=== PATIENT | female | born 1995 | race Caucasian/White ===

== ENCOUNTER 2024-06-12 21:00 | Emergency (ER) | payer MEDICAID, SELFPAY ==
[2024-06-12 21:01] VITALS: BMI 18.8
--- NOTE | 2024-06-12 21:37 | EDNOTE_ITS ---
ED Dental RME/HPI General Chief complaint: Skin/Abscess/Foreign Body Stated complaint: SWELLING TO LEFT SIDE CHIN Time Seen by Provider: 06/12/24 22:40 Source: patient Arrival date/time: 06/12/24 21:00 29-year-old female with no known medical history presents to the emergency room with a chief complaint of swelling and tenderness to the left bottom gums x 1 day. Mode of arrival: ambulatory Limitations: no limitations Related Data Home Medications ?Medication ?Instructions ?Recorded ?Confirmed Vitamin * 1 tab PO QDAY #0 tabs 09/08/14 Previous Rx's ?Medication ?Instructions ?Recorded naproxen 500 mg tablet 500 mg PO BID PRN pain #30 tabs 12/31/23 clindamycin HCl 300 mg capsule 300 mg PO TID 7 days #21 caps 06/12/24 Allergies Allergy/AdvReac Type Severity Reaction Status Date / Time artichoke Allergy Severe HIVES Unverified 09/08/14 11:54 Penicillins Allergy Mild Unverified 09/08/14 11:54 Sulfa (Sulfonamide Allergy Mild Unverified 09/08/14 11:54 Antibiotics) Review of Systems Review of Systems Systems Reviewed: All systems reviewed, normal except as documented Constitutional Constitutional: Reports system reviewed and no additional complaints, except as documented, Denies fatigue, Denies fever(s), Denies headache(s) and Denies weakness Eyes Eyes: Reports system reviewed and no additional complaints, except as documented, Denies blurry vision and Denies change in vision ENT Ears, Nose, Mouth, and Throat: Reports system reviewed and no additional complaints, except as documented, Reports dental pain, Denies otalgia, Denies headache(s), Reports mouth pain, Denies nasal congestion, Denies throat swelling and Denies vertigo Cardiovascular Cardiovascular: Reports system reviewed and no additional complaints, except as documented, Denies chest pain, Denies dyspnea and Denies dyspnea on exertion Respiratory Respiratory: Reports system reviewed and no additional complaints, except as documented, Denies chest congestion, Denies cough, Denies dyspnea, Denies dyspnea on exertion and Denies wheezing Gastrointestinal Gastrointestinal: Reports system reviewed and no additional complaints, except as documented, Denies abdominal pain, Denies cramping, Denies nausea and Denies vomiting Genitourinary Genitourinary: Reports system reviewed and no additional complaints, except as documented Musculoskeletal Musculoskeletal: Reports system reviewed and no additional complaints, except as documented and Denies back pain Integumentary/Breasts Skin/Breast: Reports system reviewed and no additional complaints, except as documented and Denies wounds Neurologic Neurologic: Reports system reviewed and no additional complaints, except as documented, Denies confusion, Denies headache(s), Denies lack of coordination, Denies vertigo and Denies weakness Psychiatric Psychiatric: Reports system reviewed and no additional complaints, except as documented, Denies anxiety, Denies confusion, Denies depression, Denies paranoia, Denies suicidal ideation and Denies tactile hallucinations Endocrine Endocrine: Reports system reviewed and no additional complaints, except as documented and Denies fatigue Hematologic/Lymphatic Hematologic/Lymphatic: Reports system reviewed and no additional complaints, except as documented and Denies lymphadenopathy Allergic/Immunologic Allergic/Immunologic: Reports system reviewed and no additional complaints, except as documented, Denies throat swelling, Denies urticaria and Denies wheezing ED Exam General Limitations: Present no limitations General appearance: Present alert and in no apparent distress Head Head exam: Present atraumatic Eye Eye exam: Present normal appearance, PERRL and EOMI ENT ENT exam: Present normal exam, normal oropharynx and mucous membranes moist Expanded ENT Exam Teeth exam: Present dental tenderness # and gingival swelling Teeth numbered: 2 1. Dental Tenderness Neck Neck exam: Present normal inspection, full ROM and trachea midline Chest Chest inspection: Present normal inspection and symmetric chest wall rise Respiratory Respiratory exam: Present normal lung sounds bilaterally Cardiovascular Cardiovascular exam: Present regular rate, normal rhythm and normal heart sounds Abdominal Exam Abdominal exam: Present soft and normal bowel sounds Extremities Exam Extremities exam: Present normal inspection and full ROM Back Exam Back exam: Present normal inspection and full ROM Neurological Exam Neurological exam: Present alert, oriented X3 and CN II-XII intact Psychiatric Psychiatric exam: Present normal affect and normal mood Skin Skin exam: Present warm, dry, intact and normal color Course Quality Measures none Orders Category Date Time Status Clindamycin Vial [Cleocin vial] Med 06/12/24 21:37 Discontinued 600 mg IM X1 ONE Ketorolac Inj [Toradol Inj] Med 06/12/24 21:37 Discontinued 30 mg IM X1 ONE Vital Signs Vital signs: Vital Signs Temperature 98.3 F 06/12/24 21:38 Pulse Rate 106 H 06/12/24 21:38 Respiratory Rate 20 06/12/24 21:38 Blood Pressure 119/73 06/12/24 21:38 Pulse Oximetry (%) 98 06/12/24 21:38 Oxygen Delivery Method Room Air 06/12/24 21:38 Dental / Oral MDM Narrative MDM Narrative:: 29-year-old female with no known medical history presents to the emergency room with a chief complaint of swelling and tenderness to the left bottom gums x 1 day. Clinically the patient appears nontoxic and in no apparent distress. Physical examination shows tenderness and pain to tooth #20 and 21 with palpation. Pain medication and a shot of antibiotics were given to the patient patient was educated to follow-up with her dentist and return to the emergency room for any evidence of worsening signs or symptoms Patient data External records reviewed:: [facility] previous records Clinical information provided by:: patient Social determinants that could affect healthcare access:: none Patient has the following chronic illnesses:: No chronic illness How is presenting disease/condition affected by chronic disease/condition?: no chronic disease Evaluation data The following diagnostics were reviewed and interpreted by me:: lab results and radiology exam(s) Lab and/or radiology exams considered but not ordered:: Labs and radiology exams considered and ordered Interpretation Summary: N/A Medications / Prescriptions Medications or Prescriptions considered but not ordered:: Rx given Medication administrations:: Medication Administration History Discontinued Medications Clindamycin Phosphate (Clindamycin Phos Inj 150 Mg/Ml Vial 6 Ml) 600 mg IM X1 ONE Stop: 06/12/24 21:38 Last Admin: 06/12/24 21:48 Dose: 600 mg Documented By: OA Ketorolac Tromethamine (Ketorolac Inj 60 Mg/2 Ml Vial) 30 mg IM X1 ONE Stop: 06/12/24 21:38 Last Admin: 06/12/24 21:48 Dose: 30 mg Documented By: OA Rx given Consultations Consultation(s) initiated? (list below): No Diagnosis Dental Differential Diagnosis: dental caries, toothache, dental abscess and fracture of tooth Most likely diagnosis given after review of the tests above:: Tooth ache Admission Indicated Admission indicated?: not indicated Admission Request Was there a request for admission?: No Disposition Plan Disposition Plan: Discharge Discharge Attestation Discharge Attestation: The patient and all family members were given an opportunity to ask questions and understood the discharge instructions. Discharge instructions specifically effects, indications for sooner follow up or return to the emergency department, and the expected course of current diagnosis. Patient condition: Stable Discharge Plan Plan Patient Disposition: HOME (Self Care) Disposition Comment: Stable Prescriptions/Referrals Prescriptions/Med Rec: New clindamycin HCl 300 mg capsule 300 mg PO TID 7 Days Qty: 21 0RF No Action Vitamin * 1 EACH tablet 1 tab PO QDAY Qty: 0 naproxen 500 mg tablet 500 mg PO BID PRN (Reason: pain) Qty: 30 0RF Referrals: Carloz Logan MD [Primary Care Provider] - In 1 week Problem List Clinical Impression: Pain, dental Patient/Caregiver Discharge Instructions Education Materials: ED Dental Pain Additional Instructions: Please follow-up with your dentist in the next 24 to 48 hours. Antibiotics are sent to your pharmacy please pick them up and take them as indicated. For any evidence of worsening signs or symptoms please return to the emergency room immediately Print Language: [place] Stand Alone Forms: Kathy Award Info., Patient Portal Info Letter ROC/MARIO Supervising Physician ROC/MARIO Supervising Physician: Dr Tinsley
[2024-06-12 21:38] VITALS: BP 119/73; PULSE 106; RESP 20; TEMP 36.8; O2SAT 98
[2024-06-12] MEDS: KETOROLAC INJ 60 MG/2 ML VIAL 30 MG IM (21:48)
[2024-06-12] MEDS: CLINDAMYCIN PHOS INJ 150 MG/ML VIAL 6 ML 600 MG IM (21:48)
== END 2024-06-13 01:26 | disposition home or self-care (01) ==
PROVIDERS: Emergency Provider Emergency Medicine; PCP Family Medicine
DX: K08.89 Other specified disorders of teeth and supporting structures (principal)
CPT/HCPCS: 96372; 99283; J0736; J1885

== ENCOUNTER 2024-07-12 07:35 | Emergency (ER) | payer MEDICAID, SELFPAY ==
[2024-07-12 07:36] VITALS: BMI 19.8
[2024-07-12 07:45] VITALS: BP 124/83; PULSE 115; RESP 19; TEMP 37; O2SAT 100
--- NOTE | 2024-07-12 07:49 | XR_ITS ---
Examination: Ribs, right, with PA chest, 5 views Technique: Chest PA, RIBS AP, RPO, LPO, AP coned lower ribs 5 views Exam date and time: July 12, 2024 0820 hrs. Indications: Patient fell 6 days ago with injury to the right chest, right chest pain right rib pain Findings: Normal heart size No pneumothorax No acute rib fractures Impression: No pneumothorax pulmonary contusion or hemothorax No acute rib fractures
--- NOTE | 2024-07-12 07:50 | EDNOTE_ITS ---
ED General RME/HPI General Chief complaint: General Adult/Misc Complain Stated complaint: R RIB PAIN X6 DAYS Time Seen by Provider: 07/12/24 07:42 Source: patient Arrival date/time: 07/12/24 07:35 29-year-old female with no known medical history presents to the emergency room with a chief complaint of right sided rib pain x 6 days. Patient states she had an injury 6 days ago and the injury has progressively gotten worse. Mode of arrival: ambulatory Limitations: no limitations Related Data Home Medications ?Medication ?Instructions ?Recorded ?Confirmed Vitamin * 1 tab PO QDAY #0 tabs Previous Rx's ?Medication ?Instructions ?Recorded naproxen 500 mg tablet 500 mg PO BID PRN pain #30 t abs 12/31/23 ibuprofen 600 mg tablet 600 mg PO Q8H PRN fever or p ain 07/12/24 #20 tabs Allergies Allergy/AdvReac Type Severity Reaction Status Date / Time artichoke Allergy Severe HIVES Verified 07/12/24 07:41 Penicillins Allergy Mild Rash Verified 07/12/24 07:41 Sulfa (Sulfonamide Allergy Mild Rash Verified 07/12/24 07:41 Antibiotics) Review of Systems Review of Systems Systems Reviewed: All systems reviewed, normal except as documented Constitutional Constitutional: Reports system reviewed and no additional complaints, except as documented, Denies fatigue, Denies fever(s), Denies headache(s) and Denies weakness Eyes Eyes: Reports system reviewed and no additional complaints, except as documented, Denies blurry vision and Denies change in vision ENT Ears, Nose, Mouth, and Throat: Reports system reviewed and no additional complaints, except as documented, Denies otalgia, Denies headache(s), Denies nasal congestion, Denies throat swelling and Denies vertigo Cardiovascular Cardiovascular: Reports system reviewed and no additional complaints, except as documented, Denies chest pain and Denies dyspnea on exertion Respiratory Respiratory: Reports system reviewed and no additional complaints, except as documented, Denies chest congestion, Denies dyspnea on exertion, Reports pain on inspiration and Denies wheezing Gastrointestinal Gastrointestinal: Reports system reviewed and no additional complaints, except as documented, Denies abdominal pain, Denies cramping, Denies nausea and Denies vomiting Genitourinary Genitourinary: Reports system reviewed and no additional complaints, except as documented Musculoskeletal Musculoskeletal: Reports system reviewed and no additional complaints, except as documented, Reports arthralgias and Denies back pain Integumentary/Breasts Skin/Breast: Reports system reviewed and no additional complaints, except as documented and Denies wounds Neurologic Neurologic: Reports system reviewed and no additional complaints, except as documented, Denies confusion, Denies headache(s), Denies lack of coordination, Denies vertigo and Denies weakness Psychiatric Psychiatric: Reports system reviewed and no additional complaints, except as documented, Denies anxiety, Denies confusion, Denies depression, Denies paranoia, Denies suicidal ideation and Denies tactile hallucinations Endocrine Endocrine: Reports system reviewed and no additional complaints, except as documented and Denies fatigue Hematologic/Lymphatic Hematologic/Lymphatic: Reports system reviewed and no additional complaints, except as documented and Denies lymphadenopathy Allergic/Immunologic Allergic/Immunologic: Reports system reviewed and no additional complaints, except as documented, Denies throat swelling, Denies urticaria and Denies wheezing Past Medical History Social History SMOKING STATUS: Current every day smoker ED Exam General Limitations: Present no limitations General appearance: Present alert and in no apparent distress Head Head exam: Present atraumatic Eye Eye exam: Present normal appearance, PERRL and EOMI ENT ENT exam: Present normal exam, normal oropharynx and mucous membranes moist Neck Neck exam: Present normal inspection, full ROM and trachea midline Chest Chest inspection: Present normal inspection and symmetric chest wall rise Expanded Chest Exam Trauma: Absent crepitus, abrasion, ecchymosis, wound, penetrating wound or surgical incision Breast: right: tenderness Respiratory Respiratory exam: Present normal lung sounds bilaterally Cardiovascular Cardiovascular exam: Present regular rate, normal rhythm and normal heart sounds Abdominal Exam Abdominal exam: Present soft and normal bowel sounds Extremities Exam Extremities exam: Present normal inspection and full ROM Back Exam Back exam: Present normal inspection and full ROM Neurological Exam Neurological exam: Present alert, oriented X3 and CN II-XII intact Psychiatric Psychiatric exam: Present normal affect and normal mood Skin Skin exam: Present warm, dry, intact and normal color Course Quality Measures none Orders Category Date Time Status XR ribs RT min 3V w CXR1V Stat Exams 07/12/24 07:49 Completed Ibuprofen Tab [Motrin Tab] Med 07/12/24 07:49 Discontinued 400 mg PO X1 ONE Vital Signs Vital signs: Vital Signs Temperature 98.6 F 07/12/24 07:45 Pulse Rate 115 H 07/12/24 07:45 Respiratory Rate 19 07/12/24 07:45 Blood Pressure 124/83 07/12/24 07:45 Pulse Oximetry (%) 100 07/12/24 07:45 Oxygen Delivery Method Room Air 07/12/24 07:45 O2 saturation 100% within normal limits [facility] Patient data External records reviewed:: [facility] previous records Clinical information provided by:: patient Social determinants that could affect healthcare access:: none Patient has the following chronic illnesses:: No chronic illness How is presenting disease/condition affected by chronic disease/condition?: no chronic disease Evaluation data The following diagnostics were reviewed and interpreted by me:: lab results and radiology exam(s) Lab and/or radiology exams considered but not ordered:: Labs and radiology exams considered and ordered Interpretation Summary: Rib [id number]: Normal heart size No pneumothorax No acute rib fractures Impression: No pneumothorax pulmonary contusion or hemothorax No acute rib fractures Medications Medications considered but not ordered:: Medication given Medication administrations:: Medication Administration History Discontinued Medications Ibuprofen (Ibuprofen Tab 400 Mg Tablet) 400 mg PO X1 ONE Stop: 07/12/24 07:50 Last Admin: 07/12/24 07:52 Dose: 400 mg Documented By: DB Medication given Consultations Consultation(s) initiated? (list below): No Diagnosis Differential Diagnosis ED Complaint MDM: Rib contusion/rib fracture/hemothorax/pneumothorax Most likely diagnosis given after review of the tests above:: Rib contusion Admission Indicated Admission indicated?: not indicated Explain why admission is indicated or not indicated:: N/A Admission Request Was there a request for admission?: No Disposition Plan Disposition Plan: Discharge Discharge Attestation Discharge Attestation: The patient and all family members were given an opportunity to ask questions and understood the discharge instructions. Discharge instructions specifically effects, indications for sooner follow up or return to the emergency department, and the expected course of current diagnosis. Patient condition: Stable Medical Decision Making MDM Narrative MDM Narrative: 29-year-old female with no known medical history presents to the emergency room with a chief complaint of right sided rib pain x 6 days. Patient states she had an injury 6 days ago and the injury has progressively gotten worse. Patient is hemodynamically stable. Physical examination shows clear bilateral lung sounds with no wheezing or any abnormal breath sounds. The patient has tenderness to the right rib cage with palpation. X-ray was completed and was negative for any rib fractures hemothorax or pneumothorax Patient was discharged and educated to follow-up with primary care provider and return to the emergency room for any evidence of worsening signs or symptoms Differential Diagnosis Differential Diagnosis: Rib contusion/rib fracture/hemothorax/pneumothorax Discharge Plan Plan Patient Disposition: HOME (Self Care) Disposition Comment: Stable Prescriptions/Referrals Prescriptions/Med Rec: New ibuprofen 600 mg tablet 600 mg PO Q8H PRN (Reason: fever or pain) Qty: 20 0RF No Action Vitamin * 1 EACH tablet 1 tab PO QDAY Qty: 0 naproxen 500 mg tablet 500 mg PO BID PRN (Reason: pain) Qty: 30 0RF Referrals: No Primary/Family,Physician [Primary Care Provider] - In 1 week Problem List Clinical Impression: Contusion of rib on right side Patient/Caregiver Discharge Instructions Education Materials: ED Chest Wall Contusion, ED Contusion, Rib Additional Instructions: Please follow-up with your primary care provider in the next 24 to 48 hours. Your x-rays were negative for any rib fractures or any acute findings with your lungs Please return to the emergency room for any evidence of worsening signs or symptoms Print Language: [place] Stand Alone Forms: Kathy Award Info., Patient Portal Info Letter PA/MARIO Supervising Physician ROC/MARIO Supervising Physician: Dr Chen
[2024-07-12] MEDS: IBUPROFEN TAB 400 MG TABLET PO (07:52)
== END 2024-07-12 09:13 | disposition home or self-care (01) ==
PROVIDERS: Emergency Provider Emergency Medicine
DX: S20.211A Contusion of right front wall of thorax, initial encounter (principal); X58.XXXA Exposure to other specified factors, initial encounter
CPT/HCPCS: 71101; 99283; A9270

== ENCOUNTER 2025-02-16 16:43 | Emergency (ER) | payer MEDICAID, SELFPAY ==
[2025-02-16 16:45] VITALS: BP 134/89; PULSE 103; RESP 18; TEMP 37.3; O2SAT 96; BMI 21.2
[2025-02-16 16:54] VITALS: PULSE 112; O2SAT 98
--- NOTE | 2025-02-16 17:06 | XR_ITS ---
Examination: PA lateral chest 2 views Technique: Upright PA lateral chest 2 views Date and time: February 16, 2025 at 1711 hrs., Comparison July 12, 2024 Indications: Chest pain beginning 2 days ago. Findings: Normal heart size. Mild to moderate hyperexpansion. No pneumonia or pulmonary edema. The osseous structures are intact Impression: Mild to moderate hyperexpansion
--- NOTE | 2025-02-16 17:06 | EKG_ITS ---
[facility] Test Date: 2025-02-16 Pat Name: MICHELLE PATEL Department: Room: - Gender: Female Director Medicare Sales: : 1995 Requested By: Gaston Mendez Order Number: [id number] Reading MD: Gaston Mendez Measurements Intervals [place] Rate: 105 P: 67 UT: 125 QRS: 68 QRSD: 85 T: 52 QT: 330 QTc: 436 Interpretive Statements SINUS TACHYCARDIA ABNORMAL RHYTHM ECG No previous ECG available for comparison /store/S0/[id number].pdf
--- NOTE | 2025-02-16 17:07 | EDRME_ITS ---
Rapid Medical Screening Exam [facility] Arrival date/time: 02/16/25 16:43 30-year-old female with no known medical history presents to the emergency room with a chief complaint of left-sided 10 out of 10 sternal chest pain and palpitations x 2 days. Patient also has tenderness and a fractured tooth that is causing her pain I have greeted and performed a focused initial assessment of this patient. A comprehensive ED assessment and evaluation of the patient, analysis of all test results, and completion of the medical decision making process will be conducted by additional ED providers. Chief Complaint: Chest Pain Time Seen by Provider: 02/16/25 16:56 Vital signs: Vital Signs Temperature 99.1 F 02/16/25 16:45 Pulse Rate 103 H 02/16/25 16:45 Respiratory Rate 18 02/16/25 16:45 Blood Pressure 134/89 H 02/16/25 16:45 Pulse Oximetry (%) 96 02/16/25 16:45 Oxygen Delivery Method Room Air 02/16/25 16:45 Vital signs reviewed by provider: Yes
[2025-02-16] MEDS: KETOROLAC INJ 60 MG/2 ML VIAL 30 MG IM (17:11)
[2025-02-16 18:08] LABS: Basophils # (Auto) 0.0 Thou/mm3 (0.0-0.2); Basophils % (Auto) 0 % (0-2.5); Eosinophils # (Auto) 0.2 Thou/mm3 (0.0-0.5); Eosinophils % (Auto) 2 % (0-10); Hematocrit 40.7 % (36.0-46.0); Hemoglobin 13.5 g/dL (12.0-16.0); Immature Granulocytes Auto 0.04 Thou/mm3 (0.00-0.00); Lymphocytes # (Auto) 2.1 Thou/mm3 (1.0-4.8); Lymphocytes % (Auto) 16 % (10-50); Mean Corpuscular HGB Conc 33.2 g/dl (31.0-37.0); Mean Corpuscular Hemoglobin 30.3 pg (25.0-35.0); Mean Corpuscular Volume 92 fL (80-100); Monocytes # (Auto) 0.8 Thou/mm3 (0.0-0.8); Monocytes % (Auto) 7 % (0-12); Neutrophils # (Auto) 9.6 Thou/mm3 (1.8-7.7); Neutrophils % (Auto) 75 % (37-80); Nucleated Red Blood Cell # 0.00 Thou/mm3 (0.00-0.00); Nucleated Red Blood Cell % 0 /100 WBC (0); Platelet Count 303 Thou/mm3 (140-440); RDW Standard Deviation 42.3 fL (36.4-46.3); Red Blood Count 4.45 Miln/mm3 (4.00-5.20); White Blood Count 12.8 Thou/mm3 (3.6-11.0)
[2025-02-16 18:24] LABS: INR 1.0 (0.9-1.3); Partial Thromboplastin Time 26.8 Seconds (22.0-36.0); Prothrombin Time 10.9 Seconds (9.0-12.2)
[2025-02-16 18:25] LABS: B-Type Natriuretic Peptide < 20 pg/mL (0-100)
[2025-02-16 18:26] LABS: Alanine Aminotransferase 18 U/L (10-49); Albumin, Serum 4.5 gm/dL (3.5-5.0); Albumin/Globulin Ratio 1.5 (1.2-2.2); Alkaline Phosphatase 77 U/L (46-116); Anion Gap 7 (7-16); Aspartate Amino Transferase 15 U/L (0-34); BUN/Creatinine Ratio 10 Ratio (12-20); Bilirubin,Total 0.5 mg/dL (0.3-1.2); Blood Urea Nitrogen 9 mg/dL (9-23); Calcium 9.6 mg/dL (8.3-10.6); Calcium (Corrected) 9.6 mg/dL (8.5-10.1); Carbon Dioxide 26.6 mMol/L (20.0-31.0); Chloride 107 mMol/L (98-107); Creatinine (Component) 0.9 mg/dL (0.6-1.3); Estimated Creatinine Clearance 76.3 mL/min (>60); Globulin 3.0 gm/dL (2.3-3.5); Glucose 87 mg/dL (74-106); Magnesium 1.9 mg/dL (1.6-2.6); Osmolality,Calculated 278 (275-295); Potassium 4.1 mMol/L (3.4-5.1); Sodium 141 mMol/L (136-145); Total Protein 7.5 gm/dL (5.7-8.2); Troponin I < 0.002 ng/mL (0.0-0.045); eGFR > 60 See Note
[2025-02-16 19:06] LABS: Collection Type, Urine Clean Catch
[2025-02-16 19:14] LABS: Amorphous Crystals,Urine Present (Absent); Bacteria,Urine 2+; Bilirubin,Urine Negative (Negative); Blood,Urine Negative (Negative); Color,Urine Yellow (Lt Yel-Yel); Glucose, Urine Negative (Negative); Ketones,Urine Negative (Negative); Leukocyte Esterase,Urine Positive (Negative); Nitrite,Urine Negative (Negative); PH,Urine 6.5 (5.0-7.0); Protein,Urine Negative (Neg - Trace); RBC,Urine 1 /hpf (0-3); Specific Gravity,Urine 1.017 (1.001-1.035); Squamous Epithelial Cell,Urine < 1 /hpf (0-5); Urobilinogen,Urine Negative mg/dL (0.0-1.0); WBC,Urine 9 /hpf (0-5)
[2025-02-16 19:22] LABS: Clarity,Urine Turbid (Clear/Hazy); Culture Indicated,Urine Yes
[2025-02-16 19:47] LABS: Amphetamine/Methamp Scrn,U Positive (Negative); Barbiturate Screen,Urine Negative (Negative); Benzodiazepines Screen,Urine Negative (Negative); Benzoylecgonine Screen, Ur Negative (Negative); Fentanyl Screen,Urine Negative (Negative); Opiate Screen,Urine Negative (Negative); THC Screen,Urine Negative (Negative)
--- NOTE | 2025-02-16 19:52 | PD.EDADULT ---
ED General RME/HPI General Chief complaint: Chest Pain Stated complaint: CHEST PAIN Time Seen by Provider: 02/16/25 16:56 Arrival date/time: 02/16/25 16:43 CC: Chest pain HPI left anterior chest onset for the past 24 hours. Significant relief after getting shot of medicine while waiting in the waiting room. Patient denies fever chills stating she is short of breath however oxygen saturations are 100% and she is speaking full sentences RME / HPI RME / HPI narrative: 02/16/25 16:43 30-year-old female with no known medical history presents to the emergency room with a chief complaint of left-sided 10 out of 10 sternal chest pain and palpitations x 2 days. Patient also has tenderness and a fractured tooth that is causing her pain I have greeted and performed a focused initial assessment of this patient. A comprehensive ED assessment and evaluation of the patient, analysis of all test results, and completion of the medical decision making process will be conducted by additional ED providers. Related Data Home Medications ?Medication ?Instructions ?Recorded ?Confirmed Vitamin * 1 tab PO QDAY #0 tabs 09/08/14 Previous Rx's ?Medication ?Instructions ?Recorded naproxen 500 mg tablet 500 mg PO BID PRN pain #30 tabs 12/31/23 ibuprofen 600 mg tablet 600 mg PO Q8H PRN fever or pain 07/12/24 #20 tabs nitrofurantoin 100 mg PO Q12H 7 days #14 caps 02/16/25 monohydrate/macrocrystals 100 mg capsule (Macrobid) Allergies Allergy/AdvReac Type Severity Reaction Status Date / Time artichoke Allergy Severe HIVES Verified 02/16/25 16:54 Penicillins Allergy Mild Rash Verified 02/16/25 16:54 Sulfa (Sulfonamide Allergy Mild Rash Verified 02/16/25 16:54 Antibiotics) Review of Systems Review of Systems Narrative Review of Systems: GEN: No fever, no chills, no weight loss EYES: No discharge, no visual changes, no pain HEENT: No ear pain, no congestion, no sore throat PULM: No shortness of breath, no cough, no congestion CV: + chest pain, no dyspnea on exertion, no palpitations GI: No nausea, no vomiting, no diarrhea, no pain, no constipation : No frequency, no urgency, no dysuria MUSC/SKEL: No joint pain, no back pain SKIN: No rash PSYCH: No hallucinations, no depression HEME/LYMPH: No easy bleeding or bruising tendencies NEURO: No weakness, no headache Past Medical History Social History SMOKING STATUS: Former smoker ED Exam Narrative Physical exam: [General: Thin but not emaciated, anxious, not in any acute distress Head normocephalic HEENT: Within acceptable limits Neck is supple nontender Chest equal chest rise nontender to palpation Respiratory: Clear to auscultation no wheezes crackles or rubs CV: Rate rhythm is regular no murmurs rubs or clicks Abdomen is soft nontender no masses positive bowel sounds all 4 quadrants Back: No CVA tenderness no spinous process tenderness from cervical spine thoracic and lumbar spine Skin: Intact no petechiae rash induration ulceration or crepitus Extremities: Moving all extremity against resistance cap refill less than 2 seconds neurosensory intact Neuro: Awake alert oriented x3 Glascow coma 15 no focal deficits] Course Course Course Narrative: Patient's workup is negative I suspect this is all chest wall related. Patient is fairly anxious and with methamphetamines in her system I suspect it is related to this as well. Patient will be discharged home with UTI. Quality Measures none Orders Category Date Time Status EKG (ED ONLY) *Do not use* NOW Care 02/16/25 17:06 Completed EKG (ED Only) Stat Exams 02/16/25 17:06 Draft XR chest 2V Stat Exams 02/16/25 17:06 Completed B-Type Natriuretic Peptide Stat Lab 02/16/25 17:46 Completed CBC Stat Lab 02/16/25 17:46 Completed Comprehensive Metabolic Panel Stat Lab 02/16/25 17:46 Completed Drug Screen,Urine Stat Lab 02/16/25 18:25 Completed Magnesium Stat Lab 02/16/25 17:46 Completed Partial Thromboplastin Time Stat Lab 02/16/25 17:46 Completed Prothrombin Time with INR Stat Lab 02/16/25 17:46 Completed Troponin I Stat Lab 02/16/25 17:46 Completed Urinalysis, C/S if Indicated Stat Lab 02/16/25 18:25 Completed Urine Culture Stat Lab 02/16/25 18:25 Received Ketorolac Inj [Toradol Inj] Med 02/16/25 17:08 Discontinued 30 mg IM X1 ONE Vital Signs Vital signs: Vital Signs Temperature 99.1 F 02/16/25 16:45 Pulse Rate 103 H 02/16/25 16:45 Respiratory Rate 18 02/16/25 16:45 Blood Pressure 134/89 H 02/16/25 16:45 Pulse Oximetry (%) 96 02/16/25 16:45 Oxygen Delivery Method Room Air 02/16/25 16:45 Discharge Plan Plan Patient Disposition: HOME (Self Care) Patient condition on transfer: Stable Prescriptions/Referrals Prescriptions/Med Rec: New nitrofurantoin monohyd/m-cryst [Macrobid] 100 mg capsule 100 mg PO Q12H 7 Days Qty: 14 0RF Rx Instructions: must administer with a meal/food No Action Vitamin * 1 EACH tablet 1 tab PO QDAY Qty: 0 naproxen 500 mg tablet 500 mg PO BID PRN (Reason: pain) Qty: 30 0RF ibuprofen 600 mg tablet 600 mg PO Q8H PRN (Reason: fever or pain) Qty: 20 0RF Referrals: Carloz Logan MD [Physician, Family Practice] - In 1 week No Primary/Family,Physician [Primary Care Provider] - In 1 week Problem List Clinical Impression: Chest pain, UTI (urinary tract infection), Methamphetamine abuse Patient/Caregiver Discharge Instructions Other Activity Instructions:: Take the medications as prescribed there is a worsening of symptoms follow-up with your primary care doctor listed above to stop using methamphetamines. Education Materials: Understanding Methamphetamine ..., ED Chest Pain, Noncardiac, ED CYSTITIS Female Adult Print Language: Swedish Stand Alone Forms: Kathy Award Info., Patient Portal Info Letter, Work/School Release PA/MARIO Supervising Physician PA/CENTRAL OFFICE OPERATOR SUPERVISOR Supervising Physician: Juan J Delaney ENP [facility] Clinical Information Provided by: patient Medical Records reviewed [facility] Meds/Rx considered, not ordered None Labs/Rad/Tests considered, not ordered None Chronic Illness/Social Conditions which may negatively complicate care or outcome(s)-explain: ETOH/drugs/substance abuse EKG Interpretation EKG #1: EKG Interpretation: EKG performed at 19 1710 shows ventricular rate of 105 MS interval 125 QRS of 85 QTc of 391 this is sinus tachycardia. Labs Labs: interpreted by id Lab(s) Interpretation(s): CBC shows a mild leukocytosis of 12.8 no bandemia no thrombocytopenia no anemia Coags within acceptable limits CMP shows no significant electrolyte imbalances renal impairment transaminitis or T. bili elevation Troponin is undetectable BNP is undetectable Urinalysis turbid leukocyte esterase positive WBCs at 92+ bacteria. UDS is positive for methamphetamines Medication Administration(s) Medication Administration History Discontinued Medications Ketorolac Tromethamine (Ketorolac Inj 60 Mg/2 Ml Vial) 30 mg IM X1 ONE Stop: 02/16/25 17:09 Last Admin: 02/16/25 17:11 Dose: 30 mg Documented By: LAMONTE
[2025-02-16 20:10] VITALS: BP 128/76; PULSE 99; RESP 18; TEMP 36.7; O2SAT 98
== END 2025-02-16 20:15 | disposition home or self-care (01) ==
PROVIDERS: Nurse Practitioner Family; Emergency Provider Emergency Medicine
DX: R07.9 Chest pain, unspecified (principal); N39.0 Urinary tract infection, site not specified; F15.10 Other stimulant abuse, uncomplicated; S02.5XXA Fracture of tooth (traumatic), initial encounter for closed fracture; X58.XXXA Exposure to other specified factors, initial encounter
CPT/HCPCS: 36415; 71046; 80053; 80307; 81001; 83735; 83880; 84484; 85025; 85610; 85730; 87077; 87086; 87186; 93005; 96372; 99283; J1885